=== PATIENT | male | born 1945 | race Caucasian/White ===

== ENCOUNTER 2017-04-19 12:00 | Inpatient (IN) | payer MEDICARE ==
[~2017-04-19] VITALS: Ht 188 cm; Wt 86.0 kg
[2017-05-09] MEDS ORDERED: GABA100C4 PO (09:23)
[2017-05-09] MEDS ORDERED: VITD400 PO (09:23)
[2017-05-09] MEDS ORDERED: AMLO2.5T PO (09:23)
[2017-05-09] MEDS ORDERED: VITA250T3 PO (09:23)
[2017-05-10] MEDS ORDERED: METOPROLOL TARTRATE 25 MG TAB PO PRN (07:45)
[2017-05-10] MEDS ORDERED: ceFAZolin 2 GM PREMIX 50 ML IV SCH (07:45)
[2017-05-10] MEDS ORDERED: LACTATED RINGER'S 1000 ML IV PRN (07:45)
[2017-05-10] MEDS ORDERED: CHLORHEXIDINE GLUCONATE 2 % 1 PACK (2 CLOTHS) TOPICAL PRN (07:45)
[2017-05-10] MEDS ORDERED: SODIUM CHLORID 0.9% 500 ML IV PRN (07:45)
[2017-05-10] MEDS ORDERED: ACETAMINOPHEN 1000 MG/100 ML 100 ML IV SCH (07:45)
[2017-05-10] MEDS ORDERED: metroNIDAZOLE 500 MG INJ 100 ML IV SCH (07:45)
[2017-05-10] MEDS ORDERED: POVIDONE IODINE 5% (ANTISEPSIS KIT) 4 APPLICATIONS EACH NARE PRN (07:45)
[2017-05-10] MEDS: ALVIMOPAN 12 MG CAPSULE - On Call PO SCH (07:50)
[2017-05-10] MEDS ORDERED: BUPIVACAINE LIPOSOME PF 1.3% 20 ML VIAL ONE (11:44)
[2017-05-10] MEDS ORDERED: SODIUM CHLORIDE 0.9% 20 ML VIAL ONE (11:44)
[2017-05-10] MEDS ORDERED: BUPIVACAINE/EPINEPHRINE 0.25% PF 30 ML VIAL ONE (13:27)
[2017-05-10] MEDS ORDERED: NALOXONE HCL 0.4 MG/ML AMP IV PUSH PRN (15:45)
[2017-05-10] MEDS ORDERED: Post-op Orders (for Pharmacy) MISC XX ONE (15:45)
[2017-05-10] MEDS ORDERED: diphenhydrAMINE HCL 50 MG/ML VIAL IV PUSH PRN (15:45)
[2017-05-10] MEDS ORDERED: ONDANSETRON HCL 4 MG/2 ML VIAL IV PUSH PRN (15:45)
[2017-05-10] MEDS ORDERED: SODIUM CHLORIDE 0.9% FLUSH 10 ML FLUSH IV FLUSH PRN (15:45)
--- NOTE | 2017-05-10 15:47 | PD.OP ---
cc: Tyra Wright MD; Eddie,Aram NAVARRO Operative Report Date of Surgery: May 10, 2017 Preoperative Diagnosis: (1) Polyp of hepatic flexure of colon Postoperative Diagnosis: (1) Polyp of hepatic flexure of colon Procedure: Laparoscopic assisted right colectomy Anesthesia: GETA Surgeon: Aram Morgan Foxing Painter(s): Jacinto MEHTA Operation and Findings: EBL: 50cc Operative findings: Tattoo present at hepatic flexure. Uncomplicated right colectomy with ileocolic anastamosis. Specimen opened on back table revealing approx 3 cm sessile polyp. Procedure in detail: Patient was taken to the operating room placed in supine position. General endotracheal anesthesia was induced and the abdomen was prepped and draped in usual sterile fashion. A surgical timeout was performed to verify correct patient procedure and site. Appropriate preoperative antibiotics were administered. Local anesthetic was injected in skin and subcutaneous tissue to the left lower abdomen and 5 mm incision made. The abdomen was entered using the Optiview 5 mm trocar and the laparoscope. The abdomen was insufflated to 15 mmHg with CO2 gas was patient tolerated well. 3 more 5 mm ports were placed along the left abdomen and one in the suprapubic area. Attention was turned to the right side of the abdomen. The patient was placed in reverse Trendelenburg position and turned to the left. There was noted to be tattoo ariana along the abdominal wall at the area of the hepatic flexure. The greater omentum was taken down from the proximal portion of the transverse colon and the hepatic flexure was taken down using the Harmonic scalpel. The transverse colon was quite redundant and floppy. Omentum was from some adhesions to the cecum and retracted cephalad. The white line of Toldt was incised with the harmonic scalpel and the ascending colon rotated medially. The cecum and the terminal ileum were from the lateral abdominal wall. Tattooing was noted in the colon at the hepatic flexure. The specimen appeared mobile enough to bring out through the abdominal wall incision. An approximately 4 inch transverse incision in the right upper abdomen was created sharply. Dissection was carried out through subcutaneous tissue and anterior rectus fascia and the rectus muscle and posterior rectus sheath with electrocautery. The specimen was unable to be fully brought up through the incision and therefore laparoscopic insufflation was resumed. Further mobilization the area of the cecum and terminal ileum was performed. Abdomen was again desufflated and the bowel brought through the incision in the right upper abdomen. This time there was adequate mobilization. The terminal ileum was divided with a FAINA 75 mm blue load. The transverse colon just to the right of midline was divided in the same fashion. The Harmonic scalpel was used to take down the mesentery and the right colic vessel clamped and tied with 0 silk suture. The specimen was removed. A side- to-side functional end-to-end anastomosis was performed with a 75 mm blue load stapler and a TX 60 to close the common enterotomy. There was no tension on the anastomosis. The mesentery was closed with running 3-0 silk suture. The bowel was allowed to reenter the abdominal cavity. The fascia was closed in 2 layers with running #1 PDS suture. The wound was irrigated and the skin closed with wide skin stapler. The abdomen was reinsufflated and the anastomosis inspected internally. At this point the abdomen was desufflated and trochars removed. Skin at the trocar sites was closed with subcuticular 4-0 Monocryl and Dermabond. The specimen was opened on the back table and an approximately 3 mm sessile polyp was identified. The patient tolerated the procedure well was extubated and taken to PACU in stable condition. Aram Morgan MD May 10, 2017 15:47
[2017-05-10] MEDS ORDERED: DO NOT ADM ANY ANTICOAGULANT DRUGS PRN (15:54)
[2017-05-10] MEDS ORDERED: *MEPERIDINE 25 MG INJ VIAL PERIprocedural Use ONLY ONE (16:04)
[2017-05-10] MEDS ORDERED: *ONDANSETRON 4 MG VIAL PERIprocedural Use ONLY ONE (16:04)
[2017-05-10] MEDS: LACTATED RINGER'S 1000 ML INJ 1,000 ML IV SCH (16:22)
[2017-05-10] MEDS ORDERED: *morphine SULFATE 8 MG/ML PERIprocedure ONLY ONE (16:39)
[2017-05-10] MEDS: ACETAMINOPHEN 1000 MG/100 ML 100 ML IV SCH ×2 (17:00→23:52)
[2017-05-10] MEDS: KETOROLAC TROMETHAMINE 30 MG/ML (IVP) VIAL IV PUSH SCH ×2 (17:15→23:53)
[2017-05-10 17:57] VITALS: BP 129/66; PULSE 77; RESP 18; TEMP 97.5; O2SAT 95
[2017-05-10] MEDS: oxyCODONE/ACETAMINOPHEN 10 MG/325 MG TAB PO PRN (18:13)
[2017-05-10 20:00] VITALS: BP 134/74; PULSE 79; RESP 17; TEMP 96; O2SAT 95
[2017-05-10] MEDS: HYDROmorphone HCL PF 1 MG/ML VIAL IV PUSH PRN ×2 (20:37→23:53)
[2017-05-10] MEDS: SODIUM CHLORIDE 0.9% FLUSH 10 ML FLUSH IV FLUSH SCH (20:43)
[2017-05-11] VITALS: BP 132/69; PULSE 78; RESP 17; TEMP 95.8; O2SAT 96
[2017-05-11] MEDS: oxyCODONE/ACETAMINOPHEN 5 MG/325 MG TAB PO PRN ×3 (03:04→19:53)
[2017-05-11] MEDS: LACTATED RINGER'S 1000 ML INJ 1,000 ML IV SCH ×3 (03:05→21:53)
[2017-05-11] MEDS: ACETAMINOPHEN 1000 MG/100 ML 100 ML IV SCH ×2 (05:10→11:08)
[2017-05-11] MEDS: KETOROLAC TROMETHAMINE 30 MG/ML (IVP) VIAL IV PUSH SCH ×3 (05:11→17:45)
[2017-05-11 08:00] VITALS: BP 144/75; PULSE 78; RESP 17; TEMP 96.9; O2SAT 93
[2017-05-11] MEDS: HYDROmorphone HCL PF 1 MG/ML VIAL IV PUSH PRN ×2 (08:12→21:54)
[2017-05-11] MEDS: ALVIMOPAN 12 MG CAPSULE - Post-op dosing PO SCH ×2 (08:12→19:53)
[2017-05-11] MEDS: SODIUM CHLORIDE 0.9% FLUSH 10 ML FLUSH IV FLUSH SCH ×2 (08:16→19:54)
[2017-05-11 08:30] VITALS: O2SAT 96
--- NOTE | 2017-05-11 08:56 | HHI.PR ---
Subjective Subjective Notes Has some post op pain. Otherwise no complaints. Has had clears. Objective Vitals/I&O Vital Signs Date Time Temp Pulse Resp B/P (MAP) Pulse Ox O2 Delivery O2 Flow Rate FiO2 05/11/17 08:00 96.9 78 17 144/75 (98) 93 05/10/17 17:15 Nasal Cannula 2 Narrative Exam NAD nonlabored breathing Abd: inc c/d/i, binder in place, mild distention A/P Assessment and Plan 72 yo M POD 1 s/p lap assisted right colectomy Doing well post op. D/c deluca. Fulls. Ambulate. DVT proph: SCDs. Dannie. Aram Morgan MD May 11, 2017 08:56
[2017-05-11 12:00] VITALS: BP 136/74; PULSE 70; RESP 17; TEMP 95.9; O2SAT 93
[2017-05-11] MEDS: ENOXAPARIN SODIUM 40 MG/0.4 ML SYRINGE SQ SCH (14:38)
[2017-05-11 16:00] VITALS: BP 156/85; PULSE 75; RESP 17; TEMP 98.2; O2SAT 93
[2017-05-11 20:00] VITALS: BP 162/83; PULSE 85; RESP 18; TEMP 99.2; O2SAT 95
[2017-05-12] VITALS: BP_SYST 137; BP_SYST 37; BP_DIAS 78; PULSE 86; RESP 16; TEMP 99.8; O2SAT 95
[2017-05-12] MEDS: KETOROLAC TROMETHAMINE 30 MG/ML (IVP) VIAL IV PUSH SCH ×4 (01:04→17:21)
[2017-05-12 04:00] VITALS: BP 127/81; PULSE 91; RESP 17; TEMP 98.7; O2SAT 94
[2017-05-12 08:00] VITALS: BP 154/81; PULSE 81; RESP 17; TEMP 96.2; O2SAT 94
[2017-05-12] MEDS: SODIUM CHLORIDE 0.9% FLUSH 10 ML FLUSH IV FLUSH SCH ×2 (08:14→19:37)
[2017-05-12] MEDS: oxyCODONE/ACETAMINOPHEN 10 MG/325 MG TAB PO PRN ×3 (08:18→19:38)
[2017-05-12] MEDS: ALVIMOPAN 12 MG CAPSULE - Post-op dosing PO SCH ×2 (08:18→19:38)
[2017-05-12] MEDS: LACTATED RINGER'S 1000 ML INJ 1,000 ML IV SCH (08:20)
--- NOTE | 2017-05-12 13:39 | HHI.PR ---
Subjective Subjective Notes Tolerating fulls. No nausea. Pain well controlled with percocet. Objective Vitals/I&O Vital Signs Date Time Temp Pulse Resp B/P (MAP) Pulse Ox O2 Delivery O2 Flow Rate FiO2 05/12/17 08:00 96.2 81 17 154/81 (105) 94 05/11/17 08:30 21 05/10/17 17:15 Nasal Cannula 2 Narrative Exam NAD nonlabored breathing Abd: inc c/d/i, binder in place, mild distention A/P Assessment and Plan 72 yo M POD 2 s/p lap assisted right colectomy Doing well post op. HLIV Regular diet Ambulate. DVT proph: SCDs. Lovenox. Likely dc home tomorrow if ben diet. Aram Morgan MD May 12, 2017 13:39
[2017-05-12] MEDS: ENOXAPARIN SODIUM 40 MG/0.4 ML SYRINGE SQ SCH (14:08)
[2017-05-12 16:00] VITALS: BP 138/79; PULSE 80; RESP 18; TEMP 98.9; O2SAT 94
[2017-05-12 21:30] VITALS: BP 168/86; PULSE 94; RESP 17; TEMP 99.8; O2SAT 94
[2017-05-13] MEDS: HYDROmorphone HCL PF 1 MG/ML VIAL IV PUSH PRN
[2017-05-13] MEDS: oxyCODONE/ACETAMINOPHEN 10 MG/325 MG TAB PO PRN (02:11)
[2017-05-13 04:30] VITALS: BP 130/77; PULSE 76; RESP 17; TEMP 98.2; O2SAT 94
[2017-05-13] MEDS: KETOROLAC TROMETHAMINE 30 MG/ML (IVP) VIAL IV PUSH SCH ×3 (05:38→11:59)
[2017-05-13 08:00] VITALS: BP 152/82; PULSE 78; RESP 17; TEMP 96.5; O2SAT 94
[2017-05-13] MEDS: SODIUM CHLORIDE 0.9% FLUSH 10 ML FLUSH IV FLUSH SCH (08:50)
[2017-05-13] MEDS: ALVIMOPAN 12 MG CAPSULE - Post-op dosing PO SCH (08:50)
[2017-05-13] MEDS: oxyCODONE/ACETAMINOPHEN 5 MG/325 MG TAB PO PRN (08:50)
[2017-05-13] MEDS ORDERED: OXYC1TAB63 PO (11:58)
[2017-05-13 12:00] VITALS: BP 146/80; PULSE 78; RESP 18; TEMP 96.4; O2SAT 93
--- NOTE | 2017-05-13 12:01 | HHI.DS ---
Discharge Summary Admission Date May 10, 2017 at 07:03 Discharge Date: May 13, 2017 Admitting Diagnosis (1) Polyp of hepatic flexure of colon ICD Codes: D12.3 - Benign neoplasm of transverse colon Procedures Lap assisted right colectomy Brief History 72 yo M presents for elective right colectomy due to large polyp at the hepatic flexure. PE at Discharge NAD nonlabored breathing Abd: inc c/d/i, binder in place Hospital Course He did well post op. He was advanced from full liquids to reg diet and he is tolerating the regular diet. Pain is controlled with oral medication. He is passing flatus and denies nausea. Pt Condition on Discharge: Good Discharge Disposition: Discharge Home Discharge Instructions DIET: Follow Instructions for: As Tolerated, No Restrictions Activities you can perform: See Additionl Instruction Other Activity Instructions: Avoid heavy lifting. No driving while on narcotics. Ok to shower. Follow up Referrals: Surgical - 2 Weeks with Aram Morgan MD New Medications: Oxycodone HCl/Acetaminophen (Oxycodone-Acetaminophen 5-325) 5 Mg-325 Mg Tablet 1 TAB PO Q4H PRN for PAIN, #30 TAB Continued Medications: Amlodipine (Amlodipine) 2.5 Mg Tab 2.5 MG PO DAILY for Blood Pressure Management, #30 TAB 0 Refills Ascorbic Acid (Vitamin C) 250 Mg Tab 500 MG PO DAILY for Nutritional Supplement, TAB 0 Refills Cholecalciferol (Vitamin D3) 400 Unit Tab 200 UNITS PO DAILY for Nutritional Supplement, #1 TAB 0 Refills Gabapentin (Gabapentin) 100 Mg Cap 100 MG PO HS, #30 CAP 0 Refills Aram Morgan MD May 13, 2017 12:01
== END 2017-05-13 13:51 | disposition home or self-care (01) | DRG 330 ==
LOC: HSDI 05-10 07:03 → N07B 05-10 17:30
PROVIDERS: ADMIT Surgery; ATTEND Surgery
PROC: 0DTF0ZZ Resection of Right Large Intestine, Open Approach (ICD-10-PCS; principal; 2017-05-10 12:00)
DX: D12.3 Benign neoplasm of transverse colon (principal); Q43.8 Other specified congenital malformations of intestine; G62.9 Polyneuropathy, unspecified; D53.9 Nutritional anemia, unspecified; I12.9 Hypertensive chronic kidney disease with stage 1 through stage 4 chronic kidney disease, or unspecified chronic kidney disease; K66.0 Peritoneal adhesions (postprocedural) (postinfection); E78.5 Hyperlipidemia, unspecified; N18.2 Chronic kidney disease, stage 2 (mild); N40.0 Benign prostatic hyperplasia without lower urinary tract symptoms; I77.819 Aortic ectasia, unspecified site; E55.9 Vitamin D deficiency, unspecified; Z85.828 Personal history of other malignant neoplasm of skin; Z92.3 Personal history of irradiation
CPT/HCPCS: 88307; 88309; 94150; C9290; J0131; J0690; J1170; J1650; J1885; J2175; J2270; J2405; J7120